=== PATIENT | female | born 1980 | race Two or more races ===

== ENCOUNTER 2019-09-21 15:27 | Emergency (ER) | payer MEDICAID, OTHER ==
[~2019-09-21] VITALS: Ht 152.4 cm; Wt 127.5 kg
[2019-09-21 15:43] VITALS: BP 164/108
[2019-09-21] MEDS ORDERED: KETOROLAC TROMETH 60MG/2ML VIAL IM ONE (16:15)
== END 2019-09-21 16:37 | disposition home or self-care (01) ==
LOC: ER 15:27
DX: M23.92 Unspecified internal derangement of left knee (principal); E66.01 Morbid (severe) obesity due to excess calories
CPT/HCPCS: 73562; 82962; 96372; 99283; J1885